=== PATIENT | female | born 1975 | race American Indian/Alaskan Native ===

== ENCOUNTER 2023-07-19 20:25 | Outpatient (REF) | payer SELFPAY ==
[2023-07-19 17:27] LABS: C Diff PCR Negative (Negative)
== END 2023-07-19 20:26 | disposition home or self-care (01) ==
LOC: LBN 20:25
PROVIDERS: Visit Provider Physician Assistant Medical
DX: N39.0 Urinary tract infection, site not specified (principal); A04.72 Enterocolitis due to Clostridium difficile, not specified as recurrent; R10.9 Unspecified abdominal pain
CPT/HCPCS: 87493; 87086

== ENCOUNTER → 2023-07-27 22:37 | Outpatient (CLI) | payer SELFPAY ==
--- NOTE | 2023-07-27 13:34 | DI.RAD_ITS ---
Exam(s) XR NASAL BONES EXAM: XR NASAL BONES CLINICAL HISTORY: evaluate fx S09.95XA Injury of nose, initial encounter. TECHNIQUE: 2D digital imaging was performed. COMPARISON: No exams were available for comparison FINDINGS: BONES: No evidence of fracture. The nasal septum is midline. SOFT TISSUES: Unremarkable. IMPRESSION: Unremarkable radiographs of the nasal bones. DATA REPOSITORY: RADIATION DOSE DELIVERED:
== END ==
PROVIDERS: Visit Provider Nurse Practitioner Family
DX: S09.92XA Unspecified injury of nose, initial encounter (principal); X58.XXXA Exposure to other specified factors, initial encounter
CPT/HCPCS: 70160

== ENCOUNTER 2024-05-03 09:23 | Outpatient (REF) | payer SELFPAY ==
[2024-05-04 12:08] LABS: Helicobacter pylori Ag, Feces Negative (Negative)
== END 2024-05-03 09:24 | disposition home or self-care (01) ==
LOC: LBN 09:23
PROVIDERS: Visit Provider Physician Assistant
DX: A04.8 Other specified bacterial intestinal infections (principal)
CPT/HCPCS: 87338